=== PATIENT | female | born 1950 | race Caucasian/White ===

== ENCOUNTER → 2021-06-16 | Day surgery (SDC) | payer MEDICARE, OTHER ==
[~2021-06-16] MED LIST: CALTRATE 600 +1 EAC1; CENTRUM ADULTS1 EACH PO; FENTANYL CITRATE/PF 100MCG/2 ML INJ ONE; MIDAZOLAM HCL 2 MG/2 ML VIAL ONE; OR PHACO EYE KIT ONE; PREOP PHACO EYE KIT ONE
[2021-06-16 12:30] VITALS: BP 135/77
== END | disposition home or self-care (01) ==
LOC: OR 09:48
PROVIDERS: ATTEND Ophthalmology
DX: H25.12 Age-related nuclear cataract, left eye (principal); I10 Essential (primary) hypertension; M19.90 Unspecified osteoarthritis, unspecified site; E55.9 Vitamin D deficiency, unspecified; Z01.812 Encounter for preprocedural laboratory examination; Z20.822 Contact with and (suspected) exposure to COVID-19
CPT/HCPCS: 66984; J2250; J3010; U0002; V2632

== ENCOUNTER → 2021-06-30 | Day surgery (SDC) | payer MEDICARE, OTHER ==
[~2021-06-30] MED LIST changes: +ALENDRONATE SODI5 MG
[2021-06-30 14:55] VITALS: BP 130/79
== END | disposition home or self-care (01) ==
LOC: OR 10:50
PROVIDERS: ATTEND Ophthalmology
DX: H25.11 Age-related nuclear cataract, right eye (principal); M06.9 Rheumatoid arthritis, unspecified; M19.90 Unspecified osteoarthritis, unspecified site; I10 Essential (primary) hypertension; E55.9 Vitamin D deficiency, unspecified; Z88.6 Allergy status to analgesic agent; Z01.812 Encounter for preprocedural laboratory examination; Z20.822 Contact with and (suspected) exposure to COVID-19
CPT/HCPCS: 66984; J2250; J3010; U0002; V2788

== ENCOUNTER 2021-12-19 07:21 | Emergency (ER) | payer MEDICARE, OTHER ==
[~2021-12-19] VITALS: Ht 154.9 cm; Wt 68.6 kg
[~2021-12-19 07:21] MED LIST changes: -FENTANYL CITRATE/PF 100MCG/2 ML INJ ONE; -MIDAZOLAM HCL 2 MG/2 ML VIAL ONE; -OR PHACO EYE KIT ONE; -PREOP PHACO EYE KIT ONE
[2021-12-19] MEDS ORDERED: ACETAMINOPHEN 325 MG TAB PO ONE (07:45)
[2021-12-19] MEDS ORDERED: ASPIRIN 325 MG TAB PO ONE (07:45)
[2021-12-19] MEDS ORDERED: ACETAMINOPHEN500 MG PO (08:01)
[2021-12-19] MEDS ORDERED: PAXLOVID 150-11 EACH PO (08:01)
[2021-12-19] MEDS ORDERED: AZITHROMYCIN250 MG PO (08:01)
[2021-12-19] MEDS ORDERED: ASPIRIN 81 MG CHEW TAB ONE (08:24)
[2021-12-19] MEDS ORDERED: ACETAMINOPHEN 325 MG TAB ONE (08:25)
== END 2021-12-19 09:03 | disposition home or self-care (01) ==
LOC: FSED 07:42
DX: R50.9 Fever, unspecified (principal); U07.1 COVID-19; R07.89 Other chest pain; R00.0 Tachycardia, unspecified; Z71.89 Other specified counseling; R94.31 Abnormal electrocardiogram [ECG] [EKG]
CPT/HCPCS: 71046; 80053; 82553; 83518; 84484; 85025; 87400; 93005; 99284; U0002